=== PATIENT | male | born 1975 | race American Indian/Alaskan Native ===

== ENCOUNTER 2017-07-20 11:25 | Outpatient (CLI) | payer MEDICAID ==
--- NOTE | 2017-07-20 12:11 | XRay Report ---
ROUTINE CHEST, TWO VIEWS: HISTORY: Chest pain, hypertension. The trachea, heart, mediastinal contour, lung herman and bony thorax are unremarkable. IMPRESSION: Unremarkable chest x-ray.
== END 2017-07-20 11:26 | disposition home or self-care (01) ==
LOC: CARD 11:25
PROVIDERS: ATTEND Internal Medicine
DX: I10 Essential (primary) hypertension (principal)
CPT/HCPCS: 71020; 93005; 93010